=== PATIENT | male | born 1950 | race Caucasian/White ===

== ENCOUNTER → 2019-08-17 15:16 | Outpatient (BNVA) | payer MEDICARE, OTHER, SELFPAY | PROVIDERS: Family Provider Internal Medicine; PCP Internal Medicine; Visit Provider Urology | DX: R97.20 Elevated prostate specific antigen [PSA] (principal); N41.1 Chronic prostatitis; N52.1 Erectile dysfunction due to diseases classified elsewhere | CPT/HCPCS: 81001; 84153 ==

== ENCOUNTER 2020-06-19 09:06 | Outpatient (CLI) | payer MEDICARE, OTHER, SELFPAY ==
--- NOTE | 2020-06-19 | MR_ITS ---
WS: [id number] MRI CERVICAL SPINE NONCONTRAST HISTORY: RIGHT ARM WEAKNESS COMPARISON: None available. Technique: Multiplanar, multisequence noncontrast imaging of the cervical spine. Very slight straightening of the mid to lower cervical spine. Small amount of marrow edema in the end plates at C6-7. Moderate disc space narrowing at C5-6 and C6-7. Endplate osteophytes from C5 to C7 ar e [id number]. Signal within the cervical cord is normal. Visualized posterior fossa is unremarkable. Craniocervical junction, C1 and C2 relationship, odontoid process and soft tissues are normal. C2-C3: Normal. C3-C4: Mild facet joint arthritis and foraminal narrowing on the RIGHT. C4-C5: Mild diffuse osteophytic ridging with mild facet and ligamentum flavum hypertrophy. Mild aly inal narrowing. C5-C6: Mild annular disc bulging and osteophytic ridging. Mild facet joint arthritis. Moderate RIGHT and mild LEFT foraminal stenosis. C6-C7: Diffuse moderate annular disc bulging and osteophytic ridging. Bilateral facet joint arthritis . Very mild encroachment upon the ventral thecal sac without high-grade stenosis. Disc osteophyte com plex causing moderate RIGHT foraminal stenosis and mild on the LEFT. C7-T1: Mild bilateral foraminal narrowing due to osteophyte disease. Paraspinal soft tissue are normal. MR/MR cervical spin wo con* [id number] IMPRESSION: 1. Moderate degenerative disc disease most significant at C6-7. Reactive marro w edema and osteophytosis. 2. Moderate RIGHT foraminal stenosis at C6-7 due to disc osteophyte disease an d mild foraminal stenosis on the LEFT. 3. Moderate RIGHT foraminal stenosis at C5-6 due to disc osteophyte disease. 4. No high-grade central or foraminal stenosis.
== END 2020-06-19 09:07 | disposition home or self-care (01) ==
PROVIDERS: PCP Internal Medicine; Visit Provider Internal Medicine
DX: R29.898 Other symptoms and signs involving the musculoskeletal system (principal); M50.322 Other cervical disc degeneration at C5-C6 level; R60.0 Localized edema; M50.323 Other cervical disc degeneration at C6-C7 level
CPT/HCPCS: 72141

== ENCOUNTER 2020-07-17 10:47 | Outpatient (CLI) | payer MEDICARE, OTHER, SELFPAY ==
--- NOTE | 2020-07-17 11:03 | MR_ITS ---
WS: [id number] MRI LUMBAR SPINE NONCONTRAST HISTORY: LOW BACK PAIN COMPARISON: None available. TECHNIQUE: Sagittal and axial multisequence imaging is submitted. Mild disc osteophyte contact on the ventral cervical cord at C5-6. Straightening of the normal lumbar lordosis. Very mild disc desiccation throughout the lumbar spine. No fractures. Conus terminates normally at L1. L1-L2: Very shallow central disc protrusion. No stenosis. L2-L3: Annular fissure centrally. Small amount of fluid in the LEFT facet joint. Mild annular disc bu lging is causing mild encroachment upon the ventral thecal sac with no stenosis. L3-L4: Mild annular disc bulging with annular fissures in the LEFT lateral disc. Mild ligamentum flav um disease and facet arthritis with fluid in the disc spaces. Very mild narrowing of the central thec al sac. Mild encroachment without displacement of the LEFT L4 nerve root with mild bilateral foramina l narrowing. L4-L5: Diffuse annular disc bulging. Moderate ligamentum flavum hypertrophy and facet arthritis. Mode rate narrowing of the lateral recesses due to a central to RIGHT paracentral disc protrusion and oste ophyte disease with moderate encroachment upon the L5 nerve roots. Mild central stenosis. No signific ant foraminal stenosis. L5-S1: Slight annular disc bulging. No stenosis. MR/MR lumbar spine wo con* [id number] IMPRESSION: 1. Mild central stenosis at L4-5 with moderate stenosis involving the lateral recesses. Disc and ligamentum flavum encroachment upon the L5 nerve roots bilat erally. 2. Mild encroachment upon the LEFT L4 nerve root with mild bilateral foraminal narrowing of the L3-4 level. 3. No high-grade stenosis.
== END 2020-07-17 10:48 | disposition home or self-care (01) ==
LOC: RADWPI 10:54
PROVIDERS: PCP Internal Medicine; Visit Provider Nurse Practitioner
DX: M48.061 Spinal stenosis, lumbar region without neurogenic claudication (principal)
CPT/HCPCS: 72148

== ENCOUNTER → 2021-01-19 17:56 | Outpatient (BNVA) | payer MEDICARE, OTHER, SELFPAY | PROVIDERS: PCP Internal Medicine; Visit Provider Nurse Practitioner | DX: J20.9 Acute bronchitis, unspecified (principal); Z20.822 Contact with and (suspected) exposure to COVID-19 | CPT/HCPCS: 87635 ==

== ENCOUNTER → 2021-02-09 15:57 | Outpatient (BNVA) | payer MEDICARE, OTHER, SELFPAY | PROVIDERS: PCP Internal Medicine; Visit Provider Registered Nurse Neonatal Intensive Care | DX: S59.909A Unspecified injury of unspecified elbow, initial encounter (principal); X58.XXXA Exposure to other specified factors, initial encounter | CPT/HCPCS: 73080 ==

== ENCOUNTER 2021-04-01 20:00 | Outpatient (CLI) | payer MEDICARE, OTHER, SELFPAY | END 2021-04-01 20:01 | disposition home or self-care (01) | LOC: SLEEP 04-02 06:31 | PROVIDERS: PCP Internal Medicine; Visit Provider Internal Medicine | DX: G47.10 Hypersomnia, unspecified (principal); R06.83 Snoring; R53.83 Other fatigue; G47.33 Obstructive sleep apnea (adult) (pediatric) | CPT/HCPCS: 95810 ==

== ENCOUNTER → 2021-04-03 16:02 | Outpatient (BNVA) | payer MEDICARE, OTHER, SELFPAY | PROVIDERS: PCP Internal Medicine; Visit Provider Family Medicine Adult Medicine | DX: Z20.822 Contact with and (suspected) exposure to COVID-19 (principal); Z20.828 Contact with and (suspected) exposure to other viral communicable diseases | CPT/HCPCS: 87635 ==

== ENCOUNTER 2021-04-30 20:00 | Outpatient (CLI) | payer MEDICARE, OTHER, SELFPAY | END 2021-04-30 20:01 | disposition home or self-care (01) | LOC: SLEEP 05-01 06:43 | PROVIDERS: PCP Internal Medicine; Visit Provider Internal Medicine | DX: G47.33 Obstructive sleep apnea (adult) (pediatric) (principal) | CPT/HCPCS: 95811 ==

== ENCOUNTER 2021-11-18 10:16 | Outpatient (CLI) | payer MEDICARE, OTHER, SELFPAY | END 2021-11-18 10:17 | disposition home or self-care (01) | LOC: LAB 10:18 | PROVIDERS: PCP Internal Medicine; Visit Provider Urology | DX: R97.20 Elevated prostate specific antigen [PSA] (principal) | CPT/HCPCS: 36415; 84153 ==

== ENCOUNTER → 2021-11-19 14:58 | Outpatient (BNVA) | payer MEDICARE, OTHER, SELFPAY | PROVIDERS: PCP Internal Medicine; Visit Provider Urology | DX: N40.1 Benign prostatic hyperplasia with lower urinary tract symptoms (principal); N41.1 Chronic prostatitis; R97.20 Elevated prostate specific antigen [PSA]; N52.1 Erectile dysfunction due to diseases classified elsewhere | CPT/HCPCS: 81003; 99213 ==

== ENCOUNTER 2022-11-23 20:20 | Emergency (ER) | payer MEDICARE, OTHER, SELFPAY ==
[2022-11-23 20:40] VITALS: BP 166/108; PULSE 68; RESP 18; TEMP 36.6; O2SAT 97
--- NOTE | 2022-11-23 20:47 | ECG_ITS ---
[facility] Test Date: 2022-11-23 Pat Name: Doe Gonzales Department: Room: Gender: Male [employer] Mover: : 1950 Requested By: Martin Fulton Order Number: [id number] Juliana MD: Saud Wsieman M.D. Measurements Intervals [place] Rate: 65 P: -7 AR: 176 QRS: 9 QRSD: 98 T: 29 QT: 426 QTc: 444 Interpretive Statements SINUS RHYTHM NONSPECIFIC T-WAVE ABNORMALITY No previous ECG available for comparison Electronically Signed On 11-24-2022 9:55:37 CDT by Saud Wiseman M.D. [id number]
--- NOTE | 2022-11-23 20:55 | CTR_ITS ---
PROCEDURE INFORMATION: Exam: CT Head Without Contrast Exam date and time: 11/23/2022 8:59 PM Age: 72 years old Clinical indication: Visual disturbance; Headache; Patient HX: C/O left ocular pain with flashes. 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 Radiation optimization: All CT scans at this facility use at least one of these dose optimization techniques: automated exposure control; mA and/or kV adjustment per patient size (includes targeted exams where dose is matched to clinical indication); or iterative reconstruction. REPORTING DATA: Count of CT and Cardiac NM exams in prior 12 months: This patient has received 0 known CTs and 0 known cardiac nuclear medicine studies in the 12 months prior to the current study. COMPARISON: MR cervical spin wo con* [id number] 06/19/2020 9:56 AM RADIATION DOSE METRICS: Total DLP (mGy-cm): 1070.28 FINDINGS: Brain: No focal hemorrhage or midline shift is identified. The ventricles and parenchyma show moderate atrophy and chronic bicerebral white matter ischemic change. Cerebral ventricles: No ventriculomegaly or evidence of hydrocephalus. Paranasal sinuses: No evidence of acute sinusitis. Mastoid air cells: Visualized mastoid air cells are well aerated. Bones/joints: No displaced skull fracture is noted. Soft tissues: Unremarkable. Vasculature: Diffuse vascular calcifications are present. CT/CT head wo con* [id number] IMPRESSION: 1. No acute intracranial abnormality. 2. Moderate age-related changes.
[2022-11-23] MEDS: tetracaine 0.5% Op Soln 4 mL Btl 1 DROP EYE-RIGHT (21:21)
--- NOTE | 2022-11-23 21:47 | W.ED.HA ---
HPI - Headache General: Chief Complaint: Headache Stated Complaint: vision issue right eye, pain Time Seen by Provider: 11/23/22 20:46 Source: patient Mode of arrival: ambulatory Limitations: no limitations History of Present Illness: 72-year-old male states that an hour before arrival he had a mild headache he states he also is having some visual disturbances in his right eye states he was seeing floaters and spider webs in his right eye he denies any vision loss denies any severe pain or fever. He states it is improved slightly while here. Associated symptoms: Deny chest pain, fever(s), nausea, rash or vomiting Review of Systems Const: Denies: fever(s) or chills Eyes: Reports: blurry vision; Denies: eye discomfort ENMT: Denies: throat pain or dental pain Card: Denies: chest pain Resp: Denies: dyspnea GI: Denies: abdominal pain, nausea, vomiting or diarrhea Musc: Denies: neck pain or back pain Skin/Breast: Denies: rash Neuro: Reports: headache(s) PFSH ED PFSH: Medical History Abnormal PSA Acute viral syndrome Onset 04/02/2021. BPH loc w urin obs/LUTS Erectile dysfunction Hypertension Prostatitis Surgical History H/O sinus surgery S/P transurethral resection of prostate Family History Family/Other CAD (coronary artery disease) Chronic kidney disease (CKD) Hypertension Hyperlipidemia Social History Smoking and tobacco status: never smoked Alcohol intake: current Alcohol intake frequency: few times a week Substance/Drug Use: never Marital status: Current occupational status: retired Physical Exam Const: COMMON NORMALS: no acute distress, patient oriented x3 and healthy appearing Eye: COMMON NORMALS: Equal, round and reactive pupils present, EOMs intact bilaterally and conjunctivae normal GENERAL EYE: appearance normal, both eyes and all related structures and normal light reflex CONJUNCTIVA: Yes conjunctivae normal PUPIL: Yes Equal, round and reactive pupils present DIRECT OPHTHALMOSCOPY: Yes normal light reflex Neck/C-Spine: COMMON NORMALS: full ROM and supple Chest: COMMONS NORMALS: normal inspection of the chest Resp: COMMON NORMALS: normal respiratory effort Cardio: COMMON NORMALS: regular rate, regular rhythm and No murmurs present (Cardio) RATE: regular rate RHYTHM: regular rhythm GI: INSPECTION: Yes normal to inspection Extremity: COMMON NORMALS: normal to inspection and full ROM Neuro: COMMON NORMALS: patient oriented x3, moves all extremities and no focal motor deficits CRANIAL NERVES: Yes CN normal except as noted SPEECH: speech normal GAIT: Yes Normal gait present MOTOR EXAM: 5/5 motor strength present throughout Psych: COMMON NORMALS: mental status grossly normal, Normal thought process present and cooperative THOUGHT PROCESS: Normal thought process present Skin: COMMON NORMALS: no rashes or lesions noted and no wounds GENERAL SKIN EXAM: no rashes or lesions noted Course Vital Signs: Vital signs: Vital Signs Temperature 97.9 F 11/23/22 20:40 Pulse Rate 68 11/23/22 20:40 Respiratory Rate 18 11/23/22 20:40 Blood Pressure 166/108 11/23/22 20:40 Pulse Oximetry 97 11/23/22 20:40 Oxygen Delivery Me thod Room Air 11/23/22 20:40 MDM - Headache Medical Decision Making Patient presents here with floaters in his right eye his intraocular pressure here is normal it was 19 on that right eyes visual acuity is normal CT is normal he has no signs of a stroke I did speak to Abraham Stacy of ophthalmology concern is most likely a vitreous detachment he is to be seen in their clinic in the morning I did inform patient of this I informed if his vision worsens he is to return he understands agrees to plan. Medical Records I reviewed the patient's medical records. Lab Data I reviewed the patient's lab results. Radiology Impressions Head CT 11/23/22 20:55 IMPRESSION: 1. No acute intracranial abnormality. 2. Moderate age-related changes. Discharge Plan Discharge Patient Disposition: Home Clinical Impression: Headache, Visual disturbance Condition: Stable Prescriptions: No Action fluticasone propionate 50 mcg/actuation spray,suspension 1 spray INTRANASAL DAILY alprazolam [Xanax] 0.5 mg tablet 0.5 mg PO DAILY PRN atorvastatin [Lipitor] 10 mg tablet 5 mg PO DAILY omeprazole 40 mg capsule,delayed release(DR/EC) 40 mg PO DAILY citalopram 10 mg tablet 10 mg PO DAILY sildenafil 100 mg tablet See Rx Instructions .Route .COMPLEX Qty: 20 12RF Rx Instructions: 1/2 TO 1 TAB 1 hour before intercourse, on empty stomach, NO NITROGLYCERIN hydrocodone-acetaminophen 5-325 mg tablet 1 tab PO Q4H PRN (Reason: pain) 3 Days Qty: 10 0RF finasteride 5 mg tablet See Rx Instructions .ROUTE .COMPLEX Qty: 90 3RF Dose Instruction: TAKE 1 TABLET BY MOUTH EVERY DAY Rx Instructions: TAKE 1 TABLET BY MOUTH EVERY DAY Discharge Orders: Discharge ED (Routine); Ordered 11/23/22 Ordered By: Sheron Jackson Referrals: Timmy Stacy MD [Physician] - 1-3 days Karl Hernandez DO [Primary Care Provider] - Discharge Diet: Advance as tolerated Discharge Activity: Resume usual activity Patient Instructions: Eye (Visual) Floaters (ED) Coding Level of Care Code ED Employment Appeals Examiner for Terrence Roe
== END 2022-11-23 22:35 | disposition home or self-care (01) ==
PROVIDERS: Emergency Provider Emergency Medicine; PCP Internal Medicine
DX: R51.9 Headache, unspecified (principal); H53.9 Unspecified visual disturbance; I10 Essential (primary) hypertension
CPT/HCPCS: 70450; 93005; 99284

== ENCOUNTER 2023-08-11 06:57 | Outpatient (CLI) | payer MEDICARE, OTHER, SELFPAY ==
--- NOTE | 2023-08-11 07:16 | MR_ITS ---
WS: [id number] MRI RIGHT KNEE HISTORY: INTERNAL DERANGEMENT R KNEE COMPARISON: Radiograph 06/29/2023 Anterior cruciate ligament: Intact. Posterior cruciate ligament: Intact. Medial collateral ligament: Small amount of fluid adjacent to the MCL. MCL is displaced from the join t line by an extruded meniscus. Posterior lateral corner structures: Intact. Medial menisci: Horizontal tear posterior horn medial meniscus extends to the inferior articular surf kervin. There is additional fraying and increased signal along the superior articular surface. In the sarah dy of the meniscus there may be an additional radial tear. Increased T2 signal extending to the infer ior articular surface of the anterior horn. This does correspond to an additional tear which is also noted on the coronal images. Extruded meniscus with abnormal signal in the extruded portion also. Lateral meniscus: Intact. Normal signal, size and shape. Extensor mechanism: Distal quadriceps tendon and patellar tendons are intact. Fluid and soft tissue: Very small suprapatellar joint effusion. Moderate size Jaime's cyst. Osseous and articular structures: Patellofemoral compartment: Mild chondromalacia medial patellar facet. Medial compartment: Moderate narrowing the medial compartment with moderate chondromalacia along the weightbearing surface of the femoral condyle and tibial plateau. Tiny osteochondral defect along the anterior tibial plateau. Lateral compartment: Mild narrowing of the lateral compartment. Mild thinning and fissuring of the ca rtilage. MR/MR knee RT wo con* [id number] IMPRESSION: 1. Complex tear posterior horn medial meniscus. Tear extends to the intra-marla cular surface with additional intrasubstance degeneration. There is additional tear along the inferior tickler surface of the anterior horn and possible radia l tear in the mid body. Meniscus is partially extruded from the joint line. In the extruded portion of the meniscus there is an additional tear. 2. Moderate narrowing the medial compartment with moderate chondromalacia. 3. Moderate-sized Jaime's cyst. 4. Mild chondromalacia medial patellar facet.
== END 2023-08-11 06:58 | disposition home or self-care (01) ==
LOC: RAD 06:57
PROVIDERS: PCP Internal Medicine; Visit Provider Orthopaedic Surgery
DX: M23.91 Unspecified internal derangement of right knee (principal); M23.221 Derangement of posterior horn of medial meniscus due to old tear or injury, right knee; M22.41 Chondromalacia patellae, right knee; M71.21 Synovial cyst of popliteal space [Baker], right knee
CPT/HCPCS: 73721